=== PATIENT | male | born 2005 | race Caucasian/White ===

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

== ENCOUNTER 2024-03-31 10:07 | Emergency (ER) | payer MEDICAID ==
[~2024-03-31] VITALS: Ht 175.3 cm; Wt 73.2 kg
[2024-03-31] MEDS: LIDOcaine 5% patch TP ONE (12:28)
[2024-03-31] MEDS ORDERED: LIDO700A32 TD (12:49)
[2024-03-31] MEDS ORDERED: IBUP-1984 PO (12:49)
[2024-03-31] MEDS ORDERED: PRED20TA PO (13:08)
[2024-03-31 13:24] VITALS: BP 122/62; PULSE 78; RESP 16; TEMP 97.7; O2SAT 99
== END 2024-03-31 13:27 | disposition home or self-care (01) ==
LOC: ER 10:08
DX: M25.551 Pain in right hip (principal); Z88.0 Allergy status to penicillin
CPT/HCPCS: 72100; 73502; 99284